=== PATIENT | female | born 1980 | race Caucasian/White ===

== ENCOUNTER 2017-05-09 08:20 | Emergency (ER) | payer OTHER ==
[2017-05-09 08:36] VITALS: BP 120/67; PULSE 94; TEMP 98; BMI 23.8
[2017-05-09] MEDS ORDERED: KETOROLAC TROMETHAMINE 60 MG/2 ML VIAL IM ONE (09:39)
[2017-05-09] MEDS ORDERED: KETOROLAC TROMETHAMINE 60 MG/2 ML VIAL ONE (09:46)
--- NOTE | 2017-05-09 10:18 | PDOC ---
History of Present Illness - General Chief Complaint: Back Pain Stated Complaint: BACK SPASMS Time Seen by Provider: 05/09/17 09:29 History Source: Patient Exam Limitations: No Limitations - History of Present Illness Initial Comments: 05/09/17 10:15 CHIEF COMPLAINT: Upper and lower back spasm HISTORY OF PRESENT ILLNESS: Patient is a 37-year-old female, no significant medical history currently on no medication reports sneezing 2 weeks ago and felt a spasm to her back pain to bilateral groin, no pain down the legs, spasm to the upper back. Patient denies any pain on inspiration, pain is reproducible with motion. No chest pain or shortness of breath. No recent travel, no use of exogenous estrogen, no prolonged sitting. Has been taking [id number] anti- inflammatories with no response. Ambulatory to ER, steady gait. REVIEW OF SYSTEMS: GENERAL: Afebrile, denies any weakness RESPIRATORY: No cough, wheezing, or hemoptysis. CARDIAC: No chest pain or shortness of breath MUSCULOSKELETAL: Pain to generalized lower back. No point tenderness. Pain to upper right lateral back as well. Pain worse on [right than left. ] SKIN : No erythema, no bruising, no deformity. GI/: Denies any abdominal pain, no urinary difficulty, incontinence or urinary retention. RECTAL: Denies any difficulty this A.m. NEUROLOGICAL: Denies any numbness or tingling. No neurosensory deficits. PHYSICAL EXAM: GENERAL: The patient is awake, alert, and fully oriented, in no acute distress. RESPIRATORY: Lungs clear bilaterally, no rhonchi wheezes or crackles CARDIAC: S1-S2 audible, no murmur rub or gallop MUSCULOSKELETAL: Pain to generalized lower back, nonradiating, no tingling or sensory deficit. Less than 2 second cap refill, +4 popliteal and pedal pulses. GI/: Abdomen soft, nontender, nondistended. No rebound tenderness. No masses palpable. MUSCULOSKELETAL: No spinal point tenderness. Normal reflexive and no deficits to sensation or strength. RECTAL: [Normal Rectal Tone]. SKIN: Warm, Dry, normal turgor, no erythema, no edema no bruising. Past History - Past Medical History Allergies/Adverse Reactions: Allergies Allergy/AdvReac Type Severity Reaction Status Date / Time No Known Allergies Allergy Verified 05/09/17 08:33 Home Medications: Ambulatory Orders Cyclobenzaprine HCl [Flexeril 10 mg] 10 mg PO BID PRN #20 tablet MDD 2 05/09/17 Methylprednisolone [Medrol Dose Vinay] 4 mg PO ASDIR #21 tablet 05/09/17 Anemia: Yes (ANEMIA) COPD: No - Suicide/Smoking/Psychosocial Hx Smoking History: Never smoked Have you smoked in the past 12 months: No Hx Alcohol Use: No Drug/Substance Use Hx: No Substance Use Type: Alcohol *Physical Exam - Vital Signs Last Vital Signs Temp Pulse Resp BP Pulse Ox 98 F 94 H 19 120/67 98 05/09/17 08:33 05/09/17 08:33 05/09/17 08:33 05/09/17 08:33 05/09/17 08:33 ED Treatment Course - Medications Given in the ED: ED Medications Discontinued Medications Generic Name Dose Route Start Last Admin Trade Name Freq PRN Reason Stop Dose Admin Ketorolac Tromethamine 60 mg 05/09/17 09:39 05/09/17 09:49 Toradol Injection - IM 05/09/17 09:40 60 mg ONCE ONE Administration Medical Decision Making - Medical Decision Making 05/09/17 10:41 A/P: Patient here with generalized back spasm, right worse than the left. 05/09/17 10:41 Patient is refusing Valium, given Toradol 60 mg IM states relief of pain on the left with decreased pain on the right however still persistent. We'll DC patient home to follow-up with orthopedics. Medrol dose pack and Flexeril. Ice to Lower back. *DC/Admit/Observation/Transfer Diagnosis at time of Disposition: Spasm of back muscles - Discharge Dispostion Disposition: HOME Condition at time of disposition: Good Admit: No - Prescriptions Prescriptions: Cyclobenzaprine HCl [Flexeril 10 mg] 10 mg PO BID PRN #20 tablet MDD 2 PRN Reason: Pain Methylprednisolone [Medrol Dose Vinay] 4 mg PO ASDIR #21 tablet - Referrals Referrals: Yohan Rich MD [Staff Physician] - - Patient Instructions Printed Discharge Instructions: Back Pain (Alternative Therapy), DI for Low Back Pain Additional Instructions: 1. Please return to the emergency department with any numbness, tingling, weakness, numbness or tingling to groin or legs, or loss of bowel or bladder function. 2. Use pain medication as ordered. 3. Please is to followup in the office of Dr. Rich for evaluation within a week if no improvement. 4. Ice to lower back 5. Refrain from lifting anything above 10 pounds, until pain resolved. - Post Discharge Activity Forms/Work/School Notes: Back to Work
== END 2017-05-09 10:48 | disposition home or self-care (01) ==
LOC: JERFT 08:20
PROC: 3E0233Z Introduction of Anti-inflammatory into Muscle, Percutaneous Approach (ICD-10-PCS; principal; 2017-05-09)
DX: M62.830 Muscle spasm of back (principal)
CPT/HCPCS: 99281-25

== ENCOUNTER 2017-06-10 09:50 | Emergency (ER) | payer OTHER ==
[2017-06-10 10:00] VITALS: BP 123/69; PULSE 93; TEMP 98.2; BMI 22.8
--- NOTE | 2017-06-10 11:29 | PDOC ---
History of Present Illness - General Chief Complaint: Injury Stated Complaint: INJURY Time Seen by Provider: 06/10/17 11:13 History Source: Patient - History of Present Illness Occurred: reports: yesterday Severity: Yes: moderate Lower Extremity Pain Location: left: foot Method of Injury: Yes: twisted Past History - Past Medical History Allergies/Adverse Reactions: Allergies Allergy/AdvReac Type Severity Reaction Status Date / Time No Known Allergies Allergy Verified 06/10/17 10:00 Home Medications: Ambulatory Orders NK [No Known Home Medication] 06/10/17 Anemia: Yes (ANEMIA) Cardiac Disorders: (palpitations) COPD: No Other medical history: arthritis - Suicide/Smoking/Psychosocial Hx Smoking History: Never smoked Have you smoked in the past 12 months: No Information on smoking cessation initiated: No Hx Alcohol Use: No Drug/Substance Use Hx: No Substance Use Type: Alcohol Review of Systems - Review of Systems Musculoskeletal: Yes: Joint Pain. No: Joint Swelling *Physical Exam - Vital Signs Last Vital Signs Temp Pulse Resp BP Pulse Ox 98.2 F 93 H 19 123/69 99 06/10/17 09:58 06/10/17 09:58 06/10/17 09:58 06/10/17 09:58 06/10/17 09:58 - Physical Exam General Appearance: Yes: Appropriately Dressed. No: Apparent Distress HEENT: positive: Normal Voice Neck: positive: Supple Respiratory/Chest: negative: Respiratory Distress Extremity: positive: Normal Inspection. negative: Swelling (to L mid foot) Integumentary: positive: Dry, Warm Neurologic: positive: Alert, Normal Mood/Affect ED Treatment Course - RADIOLOGY Radiology Studies Ordered: Category Date Time Status FOOT-LEFT [RAD] Stat Radiology 06/10/17 11:22 Ordered Medical Decision Making - Medical Decision Making 06/10/17 11:26 37 old female, history of anemia and arthritis, here with left foot pain status post injury. Patient states she twisted foot in crack on the street last night and has had pain since, worse w/ weight bearing. Has MARIZOL in place. See exam Foot injury M/l sprain R/o fx -decline pain meds 06/10/17 11:45 X-ray negative for fracture. Dc with [id number] Motrin as needed for mild foot sprain 06/10/17 11:46 *DC/Admit/Observation/Transfer Diagnosis at time of Disposition: Foot sprain Qualifiers: Encounter type: initial encounter Laterality: left Qualified Code(s): S93.602A - Unspecified sprain of left foot, initial encounter - Discharge Dispostion Disposition: HOME Condition at time of disposition: Good - Referrals Referrals: Bartolo Ibrahim MD [Primary Care Provider] - Yohan Rich MD [Staff Physician] - - Patient Instructions Additional Instructions: Take Motrin as needed for pain If you continue to have symptoms after 2 weeks, please follow-up with Dr. Rich of orthopedics - Post Discharge Activity Forms/Work/School Notes: Back to Work
== END 2017-06-10 11:51 | disposition home or self-care (01) ==
LOC: JERFT 09:50
DX: S93.602A Unspecified sprain of left foot, initial encounter (principal); X50.1XXA Overexertion from prolonged static or awkward postures, initial encounter; Y93.01 Activity, walking, marching and hiking; Y92.414 Local residential or business street as the place of occurrence of the external cause; Y99.8 Other external cause status
CPT/HCPCS: 73630-TC-LT; 99281-25